=== PATIENT | female | born 1980 | race Caucasian/White ===

== ENCOUNTER → 2018-01-07 | Outpatient (CLI) | payer OTHER ==
[~2018-01-07] VITALS: Ht 162.6 cm; Wt 85.5 kg
[~2018-01-07] MED LIST: FERROUS SULFAT325 MG PO; PRENATAL TABLE1 EAC3 PO
[2018-01-07 09:04] VITALS: BP 117/52
== END | disposition home or self-care (01) ==
LOC: IVINF 08:56
DX: Z34.82 Encounter for supervision of other normal pregnancy, second trimester (principal); Z3A.28 28 weeks gestation of pregnancy; Z67.11 Type A blood, Rh negative
CPT/HCPCS: 96372; J2790

== ENCOUNTER 2018-04-01 19:36 | Inpatient (IN) | payer OTHER ==
[~2018-04-01] VITALS: Ht 162.6 cm; Wt 92.7 kg
[2018-04-01 19:39] VITALS: BP 116/69
[2018-04-01 21:33] LABS: AMPHETAMINE NEGATIVE (500 ng/mL); BARBITURATES NEGATIVE (200 ng/mL); BENZODIAZEPINES NEGATIVE (150 ng/mL); BUPRENORPHINE NEGATIVE (10 ng/mL); COCAINE NEGATIVE (150 ng/mL); METHADONE NEGATIVE (200 ng/mL); METHAMPHETAMINE NEGATIVE (500 ng/mL); OPIATES (MORPHINE) NEGATIVE (100 ng/mL); OXYCODONE NEGATIVE (100 ng/mL); PHENCYCLIDINE NEGATIVE (25 ng/mL); PROPOXYPHENE NEGATIVE (300 ng/mL); THC CANNABINOIDS NEGATIVE (50 ng/mL); TRICYCLIC ANTIDEPRESSANTS NEGATIVE (300 ng/mL)
[2018-04-01 21:42] LABS: BASOPHIL (%) 0.1 % (0-1); EOSINOPHIL (%) 0 % (0-5); HEMATOCRIT 29.1 % (36.0-46.0); HEMOGLOBIN 9.3 G/DL (11.9-15.5); IMMATURE GRANULOCYTE (%) 1.6 % (0.0-0.7); LYMPHOCYTE (%) 20.6 % (15-42); LYMPHOCYTE COUNT 1.7 K/uL (1.0-2.8); MCH 26.6 PG (29.0-34.0); MCV 83.4 FL (83-99); MONOCYTE (%) 8.8 % (3-12); MONOCYTE COUNT 0.7 K/uL (0-0.8); NEUTROPHIL (%) 68.9 % (45-76); NEUTROPHIL COUNT 5.6 K/uL (1.8-6.4); PLATELET COUNT 194 K/uL (156-360); RBC DIS.WIDTH-CV 15.9 % (11.8-14.6); RBC DIS.WIDTH-SD 48.1 % (39-53); RED BLOOD COUNT 3.49 M/uL (3.80-5.20); WHITE BLOOD COUNT 8.1 K/uL (4.1-10.2)
[2018-04-01 21:50] VITALS: BP 116/67
[2018-04-01 23:02] VITALS: BP 105/59
[2018-04-01 23:59] VITALS: BP 109/60
[2018-04-02] VITALS (24 sets, daily range): BP systolic 94–117; BP diastolic 53–69
[2018-04-02] MEDS ORDERED: IBUPROFEN800 MG PO (12:57)
[2018-04-03] MEDS ORDERED: PERCOCET 5/31 TABLET PO (05:27)
[2018-04-03 07:03] VITALS: BP 113/63
[2018-04-03 15:04] VITALS: BP 107/63
== END 2018-04-03 18:03 | disposition home or self-care (01) | DRG 775 ==
LOC: LDRP-OP 19:36 → 2WEST 19:37 → LDRP-OP 05-01 15:20
PROVIDERS: Nurse Practitioner
DX: O48.0 Post-term pregnancy (principal); O70.0 First degree perineal laceration during delivery; Z37.0 Single live birth; Z3A.40 40 weeks gestation of pregnancy; O99.214 Obesity complicating childbirth; E66.9 Obesity, unspecified; Z68.35 Body mass index [BMI] 35.0-35.9, adult; K58.9 Irritable bowel syndrome, unspecified; O99.62 Diseases of the digestive system complicating childbirth; O69.81X1 Labor and delivery complicated by cord around neck, without compression, fetus 1
CPT/HCPCS: 85025; C1755; G0378; J3010; J7120